=== PATIENT | male | born 1995 | race African-American/Black ===

== ENCOUNTER 2016-08-09 18:27 | Emergency (ER) | payer SELFPAY ==
[2016-08-09 18:30] VITALS: BMI 26.6
[2016-08-09] MEDS ORDERED: BACTRIM DS TAB PO ONE ×2 (19:14→19:19)
--- NOTE | 2016-08-09 19:14 | DR.BITE ---
HPI - PCP Primary Care Physician: NFD - Complaint/Symptoms Chief Complaint:: PT. STATES SOMETHING BIT HIM ON THE BACK OF HIS RIGHT LEG. AREA IS SWOLLEN,RED, & WARM TO TOUCH. OCCURED ABOUT 2 WEEKS AGO BUT HAS WORSENED. NO ACTIVE DRAINAGE NOTED. - Nurses notes reviewed Nurses Notes Review: Yes - Source History Provided: Patient - Mode of Arrival Mode of Arrival: Ambulatory - Duration Duration: Constant Duration: Days - Location Location: Right, Leg - Timing Onset of Chief Complaint: 07/26/16 ago: Weeks - Context Caused by: Insect, Spider Symptoms: Pain Tetanus Immunization Current: Yes - Severity Pain: Moderate Puritis Severity: Moderate SOB Severity: None - Associated signs and symptoms Associated signs and symptoms: Swelling, Pus PMH - PMH Past Medical History: No Past Medical History: Seizures Past Surgical History: No Surgical History: No History - Family History History of Family Medical Conditions: No - Social History Does patient currently use any type of tobacco product: Yes Have you used tobacco products in the last 12 months: Yes Type of Tobacco Use: Cigarettes Does any household member use tobacco: No Alcohol Use: None Do you use any recreational Drugs:: No Lives With: Family Lives Where: Home - infectious screening In the last 2 months have you had wt loss of >10#?: NO Have you had fever, night sweats or hemotysis?: No Have you traveled outside the country in the last 6 months?: No Isolation: Standard ROS - Review of Systems Constitutional: No Symptoms Reported Eyes: No Symptoms Reported ENTM: No Symptoms Reported Respiratoy: No Symptoms Reported Cardiovascular: No Symptoms Reported Gastrointestinal/Abdominal: No Symptoms Reported Genitourinary: No Symptoms Reported Neurological: No Symptoms Reported Musculoskeletal: No Symptoms Reported Integumentary: Other (ANSCESS, CELLULITIS RIGHT CALF) Hematologic/Lymphatic: No Symptoms Reported Endocrine: No Symptoms Reported All Other Systems: Reviewed and Negative PE - Vital Signs Vital Signs: Pulse Resp BP BP Pulse Ox 08/09/16 18:27 92 H 17 129/81 97 05/07/14 05:43 127/69 09/12/12 18:53 147/82 - Constitutional Limitations: No Limitations General Appearance: Alert - Head Head Exam: Normal Inspection - Eyes Eye exam: Normal Appearance - ENT ENT Exam: Normal External Ear Exam - Neck Neck Exam: Normal Inspection - Chest Chest Inspection: Symmetric Chest Wall Rise - Respiratory Respiratory Exam: Normal Lung Sounds Bilat Respiratory Exam: Bilateral Clear to Auscultation - Cardiovascular Cardiovascular Exam: Regular Rate, Normal Rhythm, Normal Heart Sounds - Abdominal Exam Abdominal Exam: Normal Inspection - Extremities Extremities Exam: Tenderness (RIGHT CALF WITH REDNESS AND TENDERNESS.) - Back Back Exam: Normal Inspection - Neurologic Neurological Exam: Alert, Oriented X3 - Skin Skin Exam: Erythema, Other (ANSCESS RT CALF) Type of Lesion: Bite/Sting MDM - Additional Information Obtained From Additional information provided by: Family - Differential Diagnosis Differential Diagnosis: Cellulitis Other Differential Diagnosis: ABSCESS, INSECT BITE Course - Treatment Treatment: SEE ORDERS. - Education/Counseling Education/Counseling: Patient, Family, Education Educated On: Diagnosis, Needs for Follow Up - Diagnosis Discharge Problem: Abscess Cellulitis Qualifiers: Site of cellulitis: extremity Site of cellulitis of extremity: lower extremity Laterality: right Qualified Code(s): L03.115 - Cellulitis of right lower limb - Discharge Plan Condition: Stable Prescriptions: Ibuprofen [Motrin Tab 800 mg] 800 mg PO Q8H PRN #20 tab PRN Reason: Pain/Inflammation Sulfamethoxazole-Trimethoprim [BACTRIM DS TAB 800/160 MG *] 1 tab PO BID #20 tab - Follow ups/Referrals Follow ups/Referrals: NFD,None [Primary Care Provider] - 2 days - Instructions Instructions: Abscess, Cellulitis Additional Instructions: RETURN TO ED IF WORSE.
[2016-08-09] MEDS ORDERED: MOTRIN TAB 800 MG PO ONE ×2 (19:15→19:19)
[2016-08-09 20:03] VITALS: BP 123/74
== END 2016-08-09 19:45 | disposition home or self-care (01) ==
LOC: ER 18:35
PROC: 0H9KXZX Drainage of Right Lower Leg Skin, External Approach, Diagnostic (ICD-10-PCS; principal; 2016-08-09)
DX: L02.415 Cutaneous abscess of right lower limb (principal); L03.115 Cellulitis of right lower limb; W57.XXXA Bitten or stung by nonvenomous insect and other nonvenomous arthropods, initial encounter; B95.62 Methicillin resistant Staphylococcus aureus infection as the cause of diseases classified elsewhere
CPT/HCPCS: 10060; 87070; 87075; 87077; 87186; 87205; 99282

== ENCOUNTER 2017-04-22 14:14 | Emergency (ER) | payer SELFPAY ==
[2017-04-22 14:22] VITALS: BP 139/76; BMI 21.7
--- NOTE | 2017-04-22 15:05 | DR.GENAD ---
HPI - PCP Primary Care Physician: LIZA - HPI Comment HPI Comment: GETTING RED AROUND PUSTULES. NO STREAKING. NO FEVER. - Complaint/Symptoms Chief Complaint Doctors Comments: INSECT BITE NOW WITH PUSTULAR LESSIONS. HAPPEN 2 WEEKS AGO. Chief Complaint:: PT C/O LOWER EXT SWELLING. PT STATES HE WAS BIT BY SOMETHING ARRPOX 2 WEEKS AGO AND THESE PALCES ARE NOT GETTING ANY BETTER. NOTED X 3 PLACES WITH PURULENT LOOKING PUSTULES. NO WARMTH NOTED TO AREAS. - Nurses notes reviewed Nurses Notes Review: Yes - Source History Provided: Patient - Mode of Arrival Mode of Arrival: Ambulatory - Timing Onset of Chief Complaint: 04/09/17 Came on: Suddenly - Duration Duration: Constant Duration: Days - Severity Severity: Moderate PMH - PMH Past Medical History: Yes Past Medical History: Seizures Past Surgical History: No Surgical History: No History - Family History History of Family Medical Conditions: No - Social History Does patient currently use any type of tobacco product: Yes Have you used tobacco products in the last 12 months: Yes Type of Tobacco Use: Cigarettes Does any household member use tobacco: Yes Alcohol Use: None Do you use any recreational Drugs:: No Lives With: Family Lives Where: Home - infectious screening In the last 2 months have you had wt loss of >10#?: NO Have you had fever, night sweats or hemotysis?: No Have you traveled outside the country in the last 6 months?: No Isolation: Standard ROS - Review of Systems Constitutional: No Symptoms Reported Eyes: No Symptoms Reported ENTM: No Symptoms Reported Respiratoy: No Symptoms Reported Cardiovascular: No Symptoms Reported Gastrointestinal/Abdominal: No Symptoms Reported Genitourinary: No Symptoms Reported Neurological: No Symptoms Reported Musculoskeletal: Left, Leg, Foot Integumentary: Change in Color, Wound Hematologic/Lymphatic: No Symptoms Reported Endocrine: No Symptoms Reported All Other Systems: Reviewed and Negative PE - Vital Signs Vitals: Temperature 99.3 F Pulse Rate 70 Respiratory Rate 18 Blood Pressure [Right Arm] 123/74 Blood Pressure [Left Arm] 147/82 Blood Pressure 139/76 O2 Sat by Pulse Oximetry 96 - General Limitations: No Limitations General Appearance: Alert - Head Head Exam: Normal Inspection - Eyes Eye exam: Normal Appearance - ENT ENT Exam: Normal External Ear Exam External Ear Exam: Normal External Inspection TM/Canal Exam: Bilateral Normal Nose Exam: Normal Nose Exam Mouth Exam: Normal Inspection Throat Exam: Normal Inspection - Neck Neck Exam: Trachea Midline - Chest Chest Inspection: Symmetric Chest Wall Rise - Respiratory Respiratory Exam: Normal Lung Sounds Bilat Respiratory Exam: Bilateral Clear to Auscultation - Cardiovascular Cardiovascular Exam: Regular Rate, Normal Rhythm, Normal Heart Sounds - Abdominal Exam Abdominal Exam: Normal Bowel Sounds, Soft - Extremities Extremities Exam: Tenderness (LEFT LEG WITH PUSTULAR LESION WITH SURROUNDING CELLULITIS.) - Back Back Exam: Normal Inspection - Neurologic Neurological Exam: Alert, Oriented X3 - Psychiatric Psychiatric Exam: Anxious - Skin Skin Exam: Erythema MDM - Additional Information Additional Information Obtained From: Family - Differential Diagnosis Differential Diagnosis: ABSCESS, CELLULITIS Course - Treatment Treatment: SEE ORDERS. - Education/Counseling Education/Counseling: Patient, Family, Education Educated On: Diagnosis, Needs for Follow Up ROR - Labs Reviewed Laboratory: 04/22/17 15:29 Leg - Left Gram Stain - Final 04/22/17 15:29 Leg - Left Wound Culture - Preliminary - Diagnosis Discharge Problem: Abscess Cellulitis Qualifiers: Site of cellulitis: extremity Site of cellulitis of extremity: lower extremity Laterality: left Qualified Code(s): L03.116 - Cellulitis of left lower limb - Discharge Plan Disposition: HOME, SELF-CARE Condition: Stable Prescriptions: Acetaminophen with Codeine [Tylenol/Codeine #3 300-30 mg] 1 tab PO Q4-6H PRN # 15 tab PRN Reason: Pain Ibuprofen [MOTRIN TAB 800 MG *] 800 mg PO Q8H PRN #30 tab PRN Reason: Pain/Inflammation Sulfamethoxazole-Trimethoprim [BACTRIM DS TAB 800/160 MG *] 1 tab PO BID #20 tab - Follow ups/Referrals Follow ups/Referrals: Lluvia KENNEYc [Primary Care Provider] - 3 days - Instructions Instructions: Abscess, [id number], Cellulitis, Adult, [id number] Additional Instructions: RETURN TO ED IF WORSE.
[2017-04-22] MEDS ORDERED: TORADOL 60 MG VIAL IM ONE (15:18)
[2017-04-22] MEDS ORDERED: TORADOL 60 MG VIAL ONE (15:32)
== END 2017-04-22 15:47 | disposition home or self-care (01) ==
LOC: ER 14:26
DX: L03.116 Cellulitis of left lower limb (principal); B95.62 Methicillin resistant Staphylococcus aureus infection as the cause of diseases classified elsewhere
CPT/HCPCS: 87070; 87075; 87077; 87186; 87205; 96372; 99282; J1885